=== PATIENT | female | born 1975 | race Caucasian/White ===

== ENCOUNTER 2016-10-09 15:22 | Emergency (ER) | payer OTHER ==
[~2016-10-09] VITALS: Ht 157.5 cm; Wt 100.0 kg
[2016-10-09] MEDS ORDERED: METF-415 PO (15:32)
[2016-10-09] MEDS ORDERED: LEVO112T2 PO (15:32)
[2016-10-09] MEDS ORDERED: EFFE150C PO (15:32)
[2016-10-09 17:48] VITALS: BP 124/67
--- NOTE | 2016-10-09 18:27 | REP ---
REASON: Status-post twisting injury. COMPARISON: None. Tiny smoothly marginated, well corticated ossific densities are seen one distal to the medial malleolus and the other distal to the lateral malleolus. These are likely chronic. There is no definite acute fracture. The mortise is intact There is soft-tissue swelling. There is a plantar calcaneal heel spur. IMPRESSION: No definite acute fracture. Probable old injuries as described above. There is soft tissue swelling. Signed by Kenneth Boyer DO 10/09/2016 06:59 P
== END 2016-10-09 17:59 | disposition home or self-care (01) ==
LOC: M ED 15:22
DX: S93.402A Sprain of unspecified ligament of left ankle, initial encounter (principal); X50.1XXA Overexertion from prolonged static or awkward postures, initial encounter; Y92.099 Unspecified place in other non-institutional residence as the place of occurrence of the external cause; Y93.9 Activity, unspecified; Y99.9 Unspecified external cause status; E28.2 Polycystic ovarian syndrome; F41.9 Anxiety disorder, unspecified; E03.9 Hypothyroidism, unspecified; F32.9 Major depressive disorder, single episode, unspecified; Z79.84 Long term (current) use of oral hypoglycemic drugs; Z79.899 Other long term (current) drug therapy; Z88.8 Allergy status to other drugs, medicaments and biological substances; Z88.1 Allergy status to other antibiotic agents